=== PATIENT | female | born 1990 | race African-American/Black ===

== ENCOUNTER 2016-12-20 22:27 | Inpatient (IN) | payer OTHER ==
[2016-12-20 22:59] VITALS: BMI 54.1
[2016-12-20 23:19] LABS: Amnisure Test RUPTURE DETECTED (No Rupture)
[2016-12-20] MEDS ORDERED: Ibuprofen 800 MG TAB PO PRN (23:32)
[2016-12-20] MEDS ORDERED: Lidocaine 1% (PF) 30 ML VIAL SC PRN (23:32)
[2016-12-20] MEDS ORDERED: LR / Pitocin 40 units/1000 ml 1,000 ML IV PRN (23:32)
[2016-12-20] MEDS ORDERED: Promethazine HCl 25 MG/ML VIAL IM PRN (23:32)
[2016-12-20] MEDS ORDERED: HYDROcodone/Acetaminophen 5/325 mg Tablet PO PRN ×2 (23:32)
[2016-12-20] MEDS ORDERED: Penicillin G Potassium 5 MILL.UNITS in Sodium Chloride 0.9% 100 ML IVPB SCH (23:59)
[2016-12-21] MEDS: Lactated Ringer's 1,000 ML IV SCH ×2 (00:06→06:14)
[2016-12-21 00:25] LABS: Hematocrit 33.3 % (36.0-47.0); Mean Platelet Volume 7.7 fL (7.4-10.4); White Blood Cell (WBC) Count 7.7 thou/uL (4.8-10.8)
[2016-12-21] MEDS ORDERED: LR 500 ML/Oxytocin 10 units 500 ML IV SCH (03:00)
[2016-12-21] MEDS: Penicillin G 2.5 MILL.units 2.5 MILL.UNITS in Premix Bag 1 BAG IVPB SCH ×3 (04:42→12:30)
--- NOTE | 2016-12-21 07:05 | PRG ---
DATE OF SERVICE: 12/21/2016 TIME OF EVALUATION: 0635 TIME OF DICTATION: 0613 LOCATION: Labor and Delivery, patient in bed LDR 2. In brief, this is a patient undergoing Pitocin augmentation for rupture of membranes. Pitoc in was started earlier this morning, I evaluated the patient at bedside and this is my intrapartum note. SUBJECTIVE: The patient is doing well, although she does state increasing contraction discomfort. OBJECTIVE: Blood pressure is normal and she is afebrile. I performed a cervical examination and I find her cervix to be 4 cm dilated, about 50% effaced, about -2 station. An IUPC was inserted by me now to better track to the uterine strength/[place] units due to her BMI. Estimated weigh t, despite BMI limitations, is approximately 7-1/2 pounds. ASSESSMENT: This is a multigravida at term, undergoing Pitocin augmentation. PLAN: 1. Continue Pitocin. 2. IUPC inserted. 3. Patient is now 4 cm dilated when she was admitted at 2 cm. 4. heart tones are reassuring.
[2016-12-21] MEDS ORDERED: Fentanyl 4 mcg/Marc 0.1% Cadd 100 ML ONE (07:13)
--- NOTE | 2016-12-21 07:36 | HP ---
DATE OF SERVICE: 12/20/2016 TIME OF EVALUATION: 2330 LOCATION: Labor and Delivery PATIENT OF: Dr. Aquino REASON FOR EVALUATION: Suspected rupture of membranes at term. HISTORY OF PRESENT ILLNESS: In brief, this is a 26-year-old -[place] 2, para 1 at 3 9 weeks and 6 days who presents with spontaneous rupture of membranes at around 2220. She has few c ontractions. She denies any complications. It is important to note that the patient has a handwritten H\T\P in the physical chart and this dict ation is secondary, for record. In brief, I evaluated the patient at bedside and find her in no acu te distress. Abdomen is soft and nontender. PHYSICAL EXAMINATION: VITAL SIGNS: She is afebrile and normotensive. heart tones are in the 130s to 140s on Dopple r. On external monitor, the heart rate tracing is reassuring with accelerations and mod erate variability. There are irregular very low amplitude contractions on tocodynamometer more cons istent with uterine irritability. The estimated weight is difficult to feel due to the patien t's BMI of 54. There is no evidence of vaginal bleeding on exam. She is GBS positive. ASSESSMENT: This is a 26-year-old G2, P1 at term, GBS positive, with rupture of membranes. PLAN: 1. Admit to labor and delivery. 2. Dr. Aquino has requested that the OB Hospitalist team assume care. 3. Penicillin for GBS positive status. 4. Pitocin if contractions do not increase by 0300. 5. Informed consent has been obtained. 6. Patient was seen and examined. 7. Questions answered. 8. No acute maternal or complication at this time.
[2016-12-21] MEDS ORDERED: Bupivacaine 0.25% HCL 30 ML VIAL ONE (11:11)
[2016-12-21] MEDS ORDERED: Lidocaine 2% PF 10 ML AMP (For Epidural Use) ONE (11:11)
[2016-12-21] MEDS ORDERED: ePHEDrine/0.9% NaCl/PF SYRINGE 50 mg/10 ml SLOW IVP PRN (11:27)
[2016-12-21] MEDS ORDERED: Naloxone HCl 0.4 mg/ml Vial IVP PRN ×2 (11:27)
[2016-12-21] MEDS ORDERED: Eucerin (Mineral Oil/Petrolatum,White) 30 gm Jar TOP PRN (11:27)
[2016-12-21] MEDS ORDERED: Ondansetron HCl/PF 4 MG/2 ML Vial IVP PRN ×2 (11:27→15:19)
[2016-12-21] MEDS ORDERED: Promethazine HCl 25 MG/ML VIAL IM PRN (11:27)
[2016-12-21] MEDS ORDERED: Lactated Ringer's 500 ML IV PRN (11:27)
[2016-12-21] MEDS ORDERED: diphenhydrAMINE HCl 50 MG/ML 1 ML VIAL IVP PRN (11:27)
[2016-12-21] MEDS ORDERED: Fentanyl 4mcg/Marcaine 0.1% Cassette 100 ML EPIDURAL SCH (11:30)
[2016-12-21] MEDS ORDERED: Communication Order-Pharmacy FS SCH (11:30)
[2016-12-21] MEDS ORDERED: diphenhydrAMINE HCl 25 MG CAP PO PRN (15:19)
[2016-12-21] MEDS ORDERED: Benzocaine/Menthol 20-0.5% 60 ML CAN TOP PRN (15:19)
[2016-12-21] MEDS ORDERED: Adacel (T-DAP) 0.5 ML VIAL IM ONE (15:19)
[2016-12-21] MEDS ORDERED: Lanolin Ointment 7 GM TUBE TOP PRN (15:19)
[2016-12-21] MEDS ORDERED: Bisacodyl 10 MG SUPP PR PRN (15:19)
[2016-12-21] MEDS ORDERED: Milk Of Magnesia 30 ML UDCUP PO PRN (15:19)
[2016-12-21] MEDS ORDERED: LR / Pitocin 40 units/1000 ml 1,000 ML IV SCH (15:19)
[2016-12-21] MEDS: Ferrous Sulfate 325 MG TAB PO SCH (18:03)
--- NOTE | 2016-12-21 20:45 | OP ---
DELIVERY NOTE Patient delivered a female on 12/21/2016 at 1344 hours by an uncomplicated term spontaneous v aginal delivery. Apgars were 9 and 9 and weight was 2759 grams. Placenta delivered spontaneously f ollowed by a Pitocin infusion. There were no lacerations. Estimated blood loss was [address] Tulio qureshi is the delivering physician. Mother and baby were stable in the immediate .
[2016-12-21] MEDS: Docusate (Surfak) 240 MG CAP PO SCH (21:11)
[2016-12-21] MEDS: Ibuprofen 800 MG TAB PO SCH (21:11)
[2016-12-22] MEDS: Acetaminophen 325 MG TAB PO PRN ×3 (00:23→19:43)
[2016-12-22 05:45] LABS: Hematocrit 30.6 % (36.0-47.0); Mean Platelet Volume 7.5 fL (7.4-10.4); Red Blood Cell (RBC) Count 3.79 mill/uL (4.20-5.40); White Blood Cell (WBC) Count 7.9 thou/uL (4.8-10.8)
[2016-12-22] MEDS: Ibuprofen 800 MG TAB PO SCH ×3 (06:20→21:54)
--- NOTE | 2016-12-22 08:07 | DIS ---
DATE OF ADMISSION: 12/20/2016 DATE OF DISCHARGE: 12/22/2016 ADMITTING DIAGNOSES: 1. Intrauterine at 39 weeks and 6 days. 2. premature rupture of membranes. DISCHARGE DIAGNOSES: 1. Intrauterine at 39 weeks and 6 days. 2. premature rupture of membranes. PROCEDURE: Normal vaginal delivery. CONSULTATIONS: None. HOSPITAL COURSE: The patient is a 26-year-old G2, P1 female who presented to labor and delivery aft er having spontaneous rupture of membranes at 2220. On day of presentation, patient was admitted an d was induced for labor and ultimately had uncomplicated term spontaneous vaginal delivery. Today i s day #1, the patient had no complaints and is interested in discharge home. The patient reports she is ambulating, tolerating p.o., having decreased lochia. OBJECTIVE: VITAL SIGNS: Today, blood pressure is 121/68, temperature is 98.5, pulse of 67, respiratory rate of 19. GENERAL: She appears to be in no acute distress. She is alert and oriented, and cooperative and pl easant to interact with. ABDOMEN: Obese and soft. Fundus is firm at the umbilicus. EXTREMITIES: Nontender. LABORATORY DATA: hemoglobin is 9.8, hematocrit 30.6, platelets 217,000. PLAN: The patient will be discharged to home this afternoon as long as baby is eligible for dischar ge. She has been prescribed 800 mg of Motrin to be taken 3 times a day as needed for pain. She has to follow up with Dr. Aquino in 4-6 weeks. She has also been given instructions to seek medical at tention sooner if she experiences fever, increasing pain or bleeding.
[2016-12-22] MEDS: Ferrous Sulfate 325 MG TAB PO SCH ×2 (09:00→18:01)
[2016-12-22] MEDS: Docusate (Surfak) 240 MG CAP PO SCH ×2 (09:00→21:54)
[2016-12-22] MEDS: Prenatal Vitamin 1 TAB PO SCH (09:00)
[2016-12-22 12:47] VITALS: BP 126/79; TEMP 98.3
[2016-12-23] MEDS: Docusate (Surfak) 240 MG CAP PO SCH (08:37)
[2016-12-23] MEDS: Prenatal Vitamin 1 TAB PO SCH (08:37)
[2016-12-23] MEDS: Ferrous Sulfate 325 MG TAB PO SCH (08:37)
[2016-12-23] MEDS: Ibuprofen 800 MG TAB PO SCH (08:38)
== END 2016-12-23 11:10 | disposition home or self-care (01) | DRG 775 ==
LOC: L&D/OP 22:27 → L&D 23:23 → 3SW 12-21 17:34
PROVIDERS: ADMIT Obstetrics & Gynecology; ATTEND Obstetrics & Gynecology
PROC: 10E0XZZ Delivery of Products of Conception, External Approach (ICD-10-PCS; principal; 2016-12-21)
PROC: 3E0P3VZ Introduction of Hormone into Female Reproductive, Percutaneous Approach (ICD-10-PCS; 2016-12-21)
PROC: 10H07YZ Insertion of Other Device into Products of Conception, Via Natural or Artificial Opening (ICD-10-PCS; 2016-12-21)
DX: O42.02 Full-term premature rupture of membranes, onset of labor within 24 hours of rupture (principal); O99.824 Streptococcus B carrier state complicating childbirth; Z37.0 Single live birth; Z3A.39 39 weeks gestation of pregnancy
CPT/HCPCS: 36415; 84112; 85027; 86780; 87340; 87389; J2001; J2540; J7050; J7120; S0020

== ENCOUNTER 2020-12-25 14:07 | Emergency (ER) | payer SELFPAY | END 2020-12-25 16:13 | disposition home or self-care (01) | LOC: ERS 14:07 | DX: H60.501 Unspecified acute noninfective otitis externa, right ear (principal); D64.9 Anemia, unspecified | CPT/HCPCS: 99282 ==